=== PATIENT | female | born 1985 | race African-American/Black ===

== ENCOUNTER 2024-07-29 06:49 | Emergency (ER) | payer OTHER ==
[2024-07-29 06:58] VITALS: BP 130/85; PULSE 103; RESP 20; TEMP 98.6; BMI 31.8
[2024-07-29] MEDS ORDERED: ACETAMINOPHEN INJECTION 100 ML ONE (08:47)
[2024-07-29] MEDS ORDERED: ONDANSETRON 4 MG/2 ML VIAL ONE (08:47)
[2024-07-29 08:49] LABS: BASO % 0.5 % (0-2.0); EOS % 0.7 % (0-4.5); HEMATOCRIT 42.5 % (32.4-45.2); HEMOGLOBIN 14.2 GM/dL (10.7-15.3); LYMPH % 19.6 % (8-40); MCH 29.4 pg (25.7-33.7); MCHC 33.4 g/dl (32.0-36.0); MEAN PLT VOLUME 8.8 fl (7.5-11.1); MONO % 8.5 % (3.8-10.2); NEUT % 70.7 % (42.8-82.8); PLATELET COUNT 172 10^3/uL (134-434); RBC 4.83 M/mm3 (3.60-5.2); RDW 14.5 % (11.6-15.6); WHITE BLOOD COUNT 5.6 K/mm3 (4.0-10.0)
[2024-07-29] MEDS: ONDANSETRON 4 MG/2 ML VIAL IVPUSH ONE (08:55)
[2024-07-29] MEDS: ACETAMINOPHEN 1000 MG/100 ML BAG IVPB ONE (08:55)
[2024-07-29] MEDS: SODIUM CHLORIDE 0.9% 500 ML INFUS.BAG IV ONE (08:55)
[2024-07-29 09:18] LABS: POTASSIUM 5.2 mmol/L (3.5-5.1)
[2024-07-29 09:20] LABS: ALBUMIN 3.5 g/dl (3.4-5.0); BLOOD UREA NITROGEN 7.4 mg/dL (7-18); CALCIUM 8.7 mg/dL (8.5-10.1); MAGNESIUM 2.1 mg/dL (1.8-2.4)
[2024-07-29 09:22] LABS: CREATININE 0.8 mg/dL (0.55-1.3)
[2024-07-29 09:25] LABS: BILIRUBIN,TOTAL 0.4 mg/dL (0.2-1); TOT PROT 7.8 g/dl (6.4-8.2)
== END 2024-07-29 10:07 | disposition home or self-care (01) ==
LOC: JERFT 06:49 → JER 06:49 → JERFT 10:07
PROC: 3E033NZ Introduction of Analgesics, Hypnotics, Sedatives into Peripheral Vein, Percutaneous Approach (ICD-10-PCS; principal; 2024-07-29)
PROC: 3E033GC Introduction of Other Therapeutic Substance into Peripheral Vein, Percutaneous Approach (ICD-10-PCS; 2024-07-29)
DX: J10.1 Influenza due to other identified influenza virus with other respiratory manifestations (principal); R11.2 Nausea with vomiting, unspecified; R05.9 Cough, unspecified; M79.10 Myalgia, unspecified site; J34.89 Other specified disorders of nose and nasal sinuses; Z20.822 Contact with and (suspected) exposure to COVID-19
CPT/HCPCS: 0241U-QW; 36415; 80053; 83690; 83735; 84703; 85025; 96374; 96375; 99284-25; J0131